=== PATIENT | female | born 1960 | race Caucasian/White ===

== ENCOUNTER 2017-01-20 11:00 | Day surgery (SDC) | payer OTHER ==
[~2017-01-20] VITALS: Ht 157.5 cm; Wt 47.7 kg
[~2017-01-20 11:00] MED LIST: ACYC400T2 PO; ASPI-973 PO; CEPH500T PO; CYCL10TA9 PO; DULO60CA42 PO; EXCEDRIN MIGRAINE PO; HYDR-3740 PO; Lactated Ringer's 1,000 ML IV ONE
[2017-01-20] MEDS ORDERED: Propofol 10,000 mCg/mL 20 mL Inj ONE ×2 (11:01)
[2017-01-20] MEDS ORDERED: fentaNYL-PF 50 mCg/mL 2 mL Inj ONE (11:01)
--- NOTE | 2017-01-20 12:11 | PCM.HPANE ---
Patient Data Date of Service: Jan 20, 2017 Surgeon Admitting Provider: Attending Provider:Jil Catalan MD Primary Care Physician:Humera Quinonez MD Other Provider:Joshua Cardoza Anesthesia Reason for Visit Gi Bleed Ht/WT & BMI Body Mass Index Allergies Coded Allergies: No Known Allergies (Unverified , 09/01/16) Past Anesthesia History Anesthesia History: Denies:: Abnormal Airway, Anesthesia Reactions, Difficult Intubation, Fam Anesthesia Reaction, Fam Malignant Hypertherm, Malignant Hyperthermia Diabetes History Hx Diabetes?: No MRSA MRSA: No Medications Reported Medications Aspirin 81 Mg Kexmzl35 Mg PO DAILY Ref 0 01/19/17 [Excedrin Migraine] No Conflict Check1 Tab PO PRN Headache 09/01/16 Hydrocodone-Acetaminophen 10-325 mg 1 Each Tablet1 Tablet PO Q4H PRN For Pain Ref 0 09/01/16 Cephalexin 500 Mg [id number] Mg PO QID #40 TABLET Ref 0 09/01/16 Duloxetine (Cymbalta)60 Mg Capsule.dr60 Mg PO DAILY Ref 0 09/01/16 Cyclobenzaprine 10 Mg Sqxper65 Mg PO HS PRN Spasm Ref 0 09/01/16 Acyclovir 400 Mg [id number] Mg PO BID PRN OUTBREAK Ref 0 09/01/16 History History of ENT Problems?: Yes HEENT History: Denies:: Abnormal Airway Cataracts Difficult Intubation Dysphagia Hearing Problem Sinus Problem Hx of Heart Problems?: No Cardiovascular History: Denies:: AICD Abdominal Aortic Aneurism Atrial Fibrillation Chest Pain Congestive Heart Failure Edema Heart Murmur Hypertension Irregular Heartbeat Pacemaker Rheumatic Fever Thrombophlebitis Valvular Heart Disease Hx of Respiratory Problem?: No Respiratory History: Denies:: Asthma COPD Cough Dyspnea Emphysema Oxygen Administration Pneumonia Pulmonary Embolism Tuberculosis Use of C-PAP Machine Hx Neurologic Problems?: Yes Neurological History: Positive for:: Headaches Denies:: CVA Dizziness Multiple Sclerosis Parkinson's Disease Seizures Hx of GI Problems?: No Gastrointestinal History: Denies:: Cirrhosis Diverticulitis Gastroesphageal Reflux Gastrointestinal Bleeding Heartburn Hepatitis Hiatal Hernia Rectal Bleeding Hx of Problems?: No Female Hx: Denies:: Currently (post menopause) Endometriosis Pelvic Inflammatory Problems with Breasts? Skin History: Denies:: History Skin Disorders? Pressure Ulcers Hx Musculoskeletal Problems?: No Musculoskeletal History: Denies:: Back Injury Degenerative Joint Joint Replacement Musculoskeletal Trauma Systemic Lupus Hx of Psycho/Social Problems?: No Hx Surgeries?: Yes (MOHS 05/14/16, C-SPINE FUSION 2008, 1987) Hx Any Other Health Problems?: Yes Other History: Positive for:: Cancer (BASAL CELL CARCINOMA ON FACE 05/22) Hospitalization (NECK SURGERY, ) Denies:: Endocrine Disease Thyroid Disease History Blood Transfusions: Denies:: Blood Transfusions Hx Diabetes: No Hx Alcohol Use: Yes (ONCE A WEEK, SHOT OF VODKA)Hx Substance Use: Yes (SMOKE MARIJUANA 3X/WEEK)Have You Smoked inLast 12 mo: Yes Stop/Bang AALIYAH Risk Assessment: Low Risk, <3 Yes Risk Assessment Category Category 1A: Patient has history of documented sleep apnea, and HAS NOT received any narcotic, sedative or anesthesia administration during this stay. Category 1B: Patient has history of documented sleep apnea, and HAS received any narcotic , sedative or anesthesia administration during this stay Category 2: Patient has SUSPECTED Obstructive Sleep Apnea, and HAS received any narcotic , sedative or anesthesia administration during this stay. Category 3: Patient has SUSPECTED Obstructive Sleep Apnea and HAS NOT received narcotic, sedative or anesthesia administration during this stay. Category 4: Outpatient in Procedural Areas with known sleep apnea or who screen positive for High Risk via the STOP/BANG questionnaire. Exam Exam General Appearance: Alert, Oriented X3, Cooperative, No Acute Distress HEENT/AIRWAY: MP 2 Lungs: Clear to Auscultation, Normal Air Movement Heart: Exam Unremarkable, Regular Rate/Rhythm, No Murmurs/Rubs/Gallops Plan Impression Patient chart reviewed, patient interviewed and anesthestic plan with risks, benefits, and alternatives discussed, and informed consent obtained. NPO Status: >24h ASA Physical Status: ASA2 Mod Systemic Disease Anesthetic Plan: MAC Bene/Risks/Altern/Consents: Yes HP Complete Prior to Induction: Yes Henri Kumar MD Jan 20, 2017 12:11
[2017-01-20 12:37] VITALS: BP 110/76; PULSE 68; RESP 14; O2SAT 98
[2017-01-20] MEDS ORDERED: Lactated Ringer's 1,000 ML IV SCH (12:58)
[2017-01-20] MEDS ORDERED: Lactated Ringer's 500 ML IV PRN (12:58)
[2017-01-20] MEDS ORDERED: Ondansetron 2 mg/mL 2 mL Inj IVPUSH PRN (13:00)
[2017-01-20] MEDS ORDERED: MetoCLOpramide 5 mg/mL 2 mL Inj IVPUSH PRN (13:00)
[2017-01-20] MEDS ORDERED: Atropine 0.4 mg/mL Inj IVPUSH PRN (13:00)
[2017-01-20 14:30] VITALS: BP 142/90; PULSE 72; RESP 14; O2SAT 100
--- NOTE | 2017-01-20 14:34 | PCM.ANEP2 ---
Post Anesthesia Evaluation ASA/CMS Post Anesthesia VS in Patient's Normal Range?: Yes Resp Stable; Airway Patent?: Yes CV Function & Hydration Stable: Yes Mental Status Recovered?: Yes Pain control Satisfactory?: Yes N/V Control Satisfactory?: Yes Ron Stone MD Jan 20, 2017 14:34
--- NOTE | 2017-01-20 14:34 | PCM.ANEP1 ---
Post Anesthesia Phase 1 PACU Phase 1 Assessment Date of Service: Jan 20, 2017 Vital Signs Vital Signs Date Time Temp Pulse Resp B/P Pulse Ox O2 Delivery O2 Flow Rate FiO2 01/20/17 14:30 72 14 142/90 100 Room Air 01/20/17 12:37 68 14 110/76 98 Room Air Anesthetic Administered: MAC Level of Alertness: Awake, talking DUENAS's with Equal Strength: Yes Pain: No Nausea or Vomiting: No Oxygen Delivery: Room Air Lungs: Clear to Auscultation, Normal Air Movement Dermatome Level: Full Sensation Ron Stone MD Jan 20, 2017 14:33
[2017-01-20 14:46] VITALS: BP 123/79; PULSE 76; RESP 14; O2SAT 100
--- NOTE | 2017-01-20 16:13 | ENDO ---
[address] [address] ENDOSCOPY PROCEDURE PATIENT: SAY GRACE : 1960 MR#: [id number] ADMIT: 01/20/2017 JOB ID: [id number] DATE: 01/20/2017 PRE-PROCEDURAL DIAGNOSIS: Positive stool guaiac test. POST-PROCEDURAL DIAGNOSIS: Positive stool guaiac test. PROCEDURE PERFORMED: Upper endoscopy with biopsies; colonoscopy with biopsies. SURGEON: Jil Catalan M.D. FINDINGS: 1. Small gastric ulcer, biopsied. 2. Two tiny 5 mm benign-appearing colon polyps, biopsied. HISTORY OF PRESENT ILLNESS: This is a 56-year-old woman who had never had a screening colonoscopy. She was seen by her primary care provider and a stool by guaiac test was positive. Therefore, both upper and lower endoscopy were booked for screening purposes as well as to assess for a source for GI bleeding. DESCRIPTION OF PROCEDURE: The patient was brought to the procedure suite and placed in the left lateral decubitus position. Moderate anesthesia was induced by the anesthesiologist. The prep was fair and required a moderate irrigation in order to adequately visualize the mucosa. The upper endoscopy was performed after a bite block was placed. The esophagus was normal. Normal squamocolumnar junction with gastroesophageal junction noted at 39 cm. Hill grade 1 flap valve. No hiatus hernia. The stomach had very trace gastritis. There was a small ulcer on the lesser curve which was biopsied. The duodenum was visualized to the third portion and was normal. Retroflexed examination of the stomach was normal. The endoscope was withdrawn. Perianal examination revealed a small erosion at the anterior midline. Small external hemorrhoidal skin tags. The colonoscope was advanced to the cecum which was identified by the appendiceal orifice and the terminal ileum and the ileocecal valve. The terminal ileum was intubated and 5 cm of it was visualized, which was normal. The colonoscope was withdrawn over the course of 16 minutes. Irrigation had to be performed in order to adequately visualize the mucosa. Two tiny 5 mm benign-appearing polyps were visualized in the sigmoid colon at 25 cm and at 18 cm. These were removed with cold forceps. Retroflexed examination of the rectum revealed normal-appearing hemorrhoidal vessels. The colonoscope was withdrawn. The patient tolerated the procedure well. INSTRUMENT: Olympus PCF H 180 AL and Olympus GIF H 180 J. ANESTHESIA: MAC. COMPLICATIONS: None. ESTIMATED BLOOD LOSS: None. SPECIMENS: 1. Gastric ulcer, on the lesser curve. 2. Sigmoid colon polyp at 25 cm. 3. Sigmoid colon polyp at 18 cm.
--- NOTE | 2017-01-25 15:15 | PATH ---
SURGICAL PATHOLOGY Attending Physician:Jil Catalan MD CASE STATUS: Signed Out PATIENT NAME: SAY GRACE PID: [id number] : 1960 DATE COLLECTED:01/20/2017 00:00 SPECIMEN: 1: Gastric, Biopsy 2: Colon, Biopsy 3: Colon, Biopsy CLINICAL HISTORY: 1). GASTRIC ULCER BIOPSY 2). SIGMOID COLON POLYP AT 25CM 3). SIGMOID COLON POLYP AT 18CM FINAL DIAGNOSIS: 1.GASTRIC ULCER BIOPSY: MILD CHRONIC GASTRITIS INVOLVING ANTRAL MUCOSA WITH NO EVIDENCE OF ULCERATION ON MULTIPLE SERIAL SECTIONS. Negative for evidence of Helicobacter. Negative for intestinal metaplasia. Negative for dysplasia and malignancy. 2.SIGMOID COLON POLYP AT 25 CM: CHANGES CONSISTENT WITH HYPERPLASTIC POLYP. 3.SIGMOID COLON POLYP AT 18 CM: HYPERPLASTIC POLYP. ICD10 CODE K29.70 GROSS DESCRIPTION: The specimen is received in three formalin filled containers labeled with the patient's name. 1). The specimen is sublabeled "gastric ulcer" and consists of a 0.3 x 0.2 x 0.2 CM portion of tissue which is entirely submitted in cassette 1A. 2). The specimen is sublabeled "sigmoid colon polyp at 25 CM " and consists of a 0.2 x 0.2 x 0.2 CM portion of tissue which is entirely submitted in cassette 2A. 3). The specimen is sublabeled "sigmoid colon polyp at 18 CM" and consists of 2 tiny portions of tissue which aggregate to 0.2 x 0.2 x 0.2 CM. The specimen is entirely submitted in cassettes 3A. 01/21/2017 [facility] MICRO DESCRIPTION: See diagnosis. ICD-9 CODES: CPT CODES: 1: 69301 2: 56121 3: 27593 Electronically Signed Out Kennedy Renteria MD [facility] [address], [place] [address] Technical component performed at [facility], [facility] [address], [address]
== END 2017-01-20 23:59 | disposition home or self-care (01) ==
LOC: END 11:00
PROVIDERS: ATTEND Surgery
DX: K29.50 Unspecified chronic gastritis without bleeding (principal); K31.7 Polyp of stomach and duodenum; K63.5 Polyp of colon; E78.5 Hyperlipidemia, unspecified; M47.9 Spondylosis, unspecified; F17.210 Nicotine dependence, cigarettes, uncomplicated; M54.9 Dorsalgia, unspecified; Z79.82 Long term (current) use of aspirin; Z85.828 Personal history of other malignant neoplasm of skin
CPT/HCPCS: 43239; 45380; J2250; J3010; J7120